=== PATIENT | male | born 1985 | race Caucasian/White ===

== ENCOUNTER → 2018-07-04 | Outpatient (CLI) | payer BC ==
--- NOTE | 2018-07-04 14:20 | RADIOLOGY IMAGING REPORT ---
FACILITY: [facility] [place] PATIENT NAME: Ivan Sheth : 1985 MR: [id number] V: [id number] EXAM DATE: ORDERING PHYSICIAN: JADE WOODWARD TECHNOLOGIST: Location: [facility] - [place], [place] Patient: Ivan Sheth : 1985 Visit/Account:[id number] Date of Sevice: 07/04/2018 Abdominal wall ultrasound. HISTORY: Midline pain anterior to sternum, lump. COMPARISON: None. Ultrasound images were obtained of the upper abdominal wall. A defect measuring 10 mm in transverse d iameter is present in the upper abdominal wall musculature at the midline just inferior to the xiphoi d. Intra-abdominal fat and a peristalsing bowel loop protrude through the defect into the subcutaneou s fat. The hernia increases in size during the Valsalva maneuver. The hernia sac itself measures 2.6 cm in greatest transverse diameter. IMPRESSION: Positive for upper abdominal ventral hernia. Results were discussed with JADE WOODWARD at 07/04/2018 2:15 PM. Report Dictated By: David Miranda MD at 07/04/2018 2:09 PM Report E-Signed By: David Miranda MD at 07/04/2018 2:15 PM WSN:[id number]
== END ==
LOC: US 13:10
PROVIDERS: ATTEND Nurse Practitioner Family
DX: K43.9 Ventral hernia without obstruction or gangrene (principal)
CPT/HCPCS: 76705

== ENCOUNTER 2018-07-28 00:02 | Day surgery (SDC) | payer BC ==
[2018-07-28] VITALS (8 sets, daily range): BP systolic 110–149; BP diastolic 66–91
[~2018-07-28] VITALS: Ht 175.3 cm; Wt 104.8 kg
[~2018-07-28 00:02] MED LIST: ALBU8.5H IH; DULO60CA7; DULO60CA7 PO; FLUT1DIS28 IH; LAMO100T52 PO; LAMO200T45 PO; TRAZ50TA34 PO
[2018-07-28] MEDS ORDERED: FAMOTIDINE 20 MG TAB PO ONE (05:00)
[2018-07-28] MEDS ORDERED: fentaNYL CITR 250 MCG/5 ML AMP ONE (08:25)
[2018-07-28] MEDS ORDERED: ONDANSETRON 4 MG/2 ML VIAL ONE (08:26)
[2018-07-28] MEDS ORDERED: PROPOFOL EMUL(*) 10MG/ML 20 ML 20 ML ONE (08:26)
[2018-07-28] MEDS ORDERED: LIDOCAINE MPF 1% 5 ML VIAL ONE (08:26)
[2018-07-28] MEDS ORDERED: DEXAMETHASONE SOD PHOS 10MG/ML ONE (08:26)
[2018-07-28] MEDS ORDERED: SUGAMMADEX SOD 200 MG/2 ML SDV ONE (08:27)
[2018-07-28] MEDS ORDERED: KETAMINE HCL 200 MG/20 ML MDV ONE (09:32)
[2018-07-28] MEDS ORDERED: CLINDAMYCIN(*) 600 MG/NS 50 ML 50 ML IVPB ONE (09:35)
[2018-07-28] MEDS ORDERED: LEVOFLOXACIN/D5W 750 MG/150 ML 150 ML IVPB ONE (09:35)
[2018-07-28] MEDS ORDERED: BUPIVACAINE/EPI 0.5% 50ML VIAL INFIL ONE (09:36)
[2018-07-28] MEDS ORDERED: HALOPERIDOL LACT 5 MG/ML VIAL IM ONE (10:19)
[2018-07-28] MEDS ORDERED: KETOROLAC 30 MG/ML VIAL ONE (11:54)
[2018-07-28] MEDS ORDERED: MIDAZOLAM 2 MG/2 ML VIAL IVP PRN (12:10)
[2018-07-28] MEDS ORDERED: NORMOSOL R SOLN(*) 1000 ML BAG 1,000 ML IV PRN (12:10)
[2018-07-28] MEDS ORDERED: LIDOCAINE/SOD BICARB 8.4% SYR ID ONE (12:10)
[2018-07-28] MEDS ORDERED: FAMOTIDINE 20 MG/50 ML PREMIX IVPB ONE (12:10)
[2018-07-28] MEDS ORDERED: TRAM-420 PO (12:20)
--- NOTE | 2018-07-28 12:22 | Short(Outpt) Discharge Summary ---
Discharge Summary Reason for Hosp/Final Diag: (1) Ventral hernia Hospital Course & Plan: pt presented for robotic ventral hernia repair with mesh. he tolerated the procedure well. he will be discharged home when criteria met. Discharge Instructions Home Meds Active Scripts Tramadol Hcl (TRAMADOL HCL) 50 Mg Tablet, 50 MG PO Q4H PRN for PAIN, #20 TAB Prov:JACQUELINE MORENO 07/28/18 Reported Medications Albuterol Sulfate 90 Mcg/Act (PROAIR HFA 90 MCG/ACT) 8.5 Gm Hfa.aer.ad, 1 PUFF IH DAILY, INHALER 07/21/18 Fluticasone/Salmeterol (ADVAIR 250-50 DISKUS) 1 Each Disk.w.dev, 1 EACH IH DAILY 07/21/18 Trazodone Hcl (TRAZODONE HCL) 50 Mg Tablet, 50 MG PO QHS 07/21/18 Duloxetine HCl (Duloxetine HCl) 60 Mg Capsule.dr, 1 TAB PO DAILY 07/21/18 Lamotrigine (LAMOTRIGINE) 200 Mg Tablet, 200 MG PO QHS 07/21/18 Discontinued Reported Medications Trazodone Hcl (TRAZODONE HCL) Unknown Strength Tablet, PO QHS 07/15/18 Lamotrigine (LAMOTRIGINE) Unknown Strength Tablet, PO 07/15/18 Duloxetine HCl (Duloxetine HCl) Unknown Strength Capsule. 07/15/18 Diet: Regular Activity: No Heavy Lifting Special Instructions: no lifting more than 15 lbs for 6 wks. ok to shower tomorrow. take stool softener while taking pain meds. f/u [facility] 2 wks ([phone]). JACQUELINE MORENO July 28, 2018 12:22
--- NOTE | 2018-07-28 12:28 | Post Operative Progress Note ---
Post Operative Progress Note Date: July 28, 2018 Time: 12:23 Surgeon: dr. blake moreno #[id number] Practical Nursing Instructor: none Anesthesia: gen, local dr. dunlap Pre-Op Diagnosis: ventral hernia Post-Op Diagnosis: same Findings: ventral hernia Procedure(s): robotic ventral hernia repair with mesh Complications: none Estimated Blood Loss: minimal Date OP Note Dictated: July 28, 2018 Time OP Note Dictated: 12:24 JACQUELINE MORENO July 28, 2018 12:28
[2018-07-28] MEDS ORDERED: fentaNYL CITR 100 MCG/2 ML AMP ONE (13:08)
--- NOTE | 2018-07-28 13:08 | OPERATIVE REPORT 1 ---
EVENT DATE: July 28, 2018 SURGEON: Rigo Barrera MD ANESTHESIOLOGIST: Rehan Beckett MD ANESTHESIA: General and local. LIBRARY SERVICES COORDINATOR: None. PREOPERATIVE DIAGNOSIS Ventral hernia. POSTOPERATIVE DIAGNOSIS Ventral hernia. PROCEDURE PERFORMED Robotic ventral hernia repair with mesh. FLUIDS IV Crystalloid. ESTIMATED BLOOD LOSS Minimal. SPECIMENS None. COMPLICATIONS None. INDICATIONS This is a 32-year-old male with an epigastric ventral hernia that is bothersome to him. Imaging showed a epigastric hernia with small bowel through the defect. On physical exam, the patient was stable. He did have a palpable epigastric hernia. Risk and benefits of the procedure were explained and consent was signed. DESCRIPTION OF PROCEDURE The patient was taken to the operating room and placed in the supine position. General anesthesia was administered per anesthesia team. The patient was prepped and draped in normal sterile fashion. Local analgesia was injected in the dermis below the right costal margin and a small incision was made. Optiview technique was used to enter the abdomen easily. Pneumoperitoneum was achieved. After injecting local analgesia and under direct vision, a total of 3 right-sided 8 mm ports were placed including exchanging the 5 mm port for an 8 mm port. I inspected the abdomen. There was no injury upon entry. The robot was docked. Scissors with electrocautery was used to create a peritoneal flap and reduce the hernia contents. The hernia had fatty contents through it. In order to get the hernia contents reduced and to create a large enough peritoneal flap, much, but not all of the falciform ligament was taken down. Hemostasis was assured. The hernia defect was approximately 1.5 cm. This was closed with an absorbable Stratafix stitch. A 9 cm round Symbotex mesh was placed in the abdomen. This was secured to the abdominal wall with a running absorbable V-Loc stitch x2. A third V-Loc stitch was run from one end to the other through the center in order to further secure the mesh. The peritoneal flap was reapproximated with a running V-Loc absorbable stitch. Hemostasis was assured. The ports were removed under direct vision. Hemostasis was assured. Pneumoperitoneum was relieved. The final port was removed. All skin incisions were closed with 4-0 Monocryl subcuticular stitches. More local analgesia was injected. Appropriate dressings were applied. The patient tolerated the procedure well. There were no complications. MTDD
[2018-07-28] MEDS ORDERED: traMADol 50 MG TAB PO ONE (14:05)
[2018-07-28] MEDS ORDERED: traMADol 50 MG TAB ONE (17:41)
== END 2018-07-28 13:30 | disposition home or self-care (01) ==
LOC: OR 00:02
PROVIDERS: ATTEND Surgery
DX: K43.9 Ventral hernia without obstruction or gangrene (principal)
CPT/HCPCS: 49652; C1781; J1100; J1630; J1885; J1956; J2001; J2250; J2405; J2704; J3010; J3490; S2900